=== PATIENT | male | born 1980 | race Caucasian/White ===

== ENCOUNTER 2019-06-21 12:33 | Emergency (ER) | payer OTHER ==
[~2019-06-21] VITALS: Ht 183 cm; Wt 90.7 kg
--- OUTSIDE RECORDS SUMMARY | 2019-06-21 13:02 | XMS REPORT | Continuity of Care Document ---
Author Organization Unknown Address Unknown Phone Unavailable Allergies There is no data. Medications There is no data. Problems There is no data. Procedures There is no data. Results There is no data. Encounters ACCT No. Visit Date/Time Discharge Status Pt. Type Provider Facility Loc./Unit Complaint [id number] 12/15/2018 14:10:00 12/15/2018 23:59: 59 CLS Outpatient [facility]
--- NOTE | 2019-06-21 13:06 | ED Upper Extremity ---
General Chief Complaint: Upper Extremity Stated Complaint: LT ARM INJ Nursing Triage Note: Patient c/o L arm bruising. patient stating fell on arm 2 days prior and was treated by urgent care and had x-ray. patient reports is to have follow up with ortho on 06/22/2019, but states he noticed bruise today Nursing Sepsis Screen: No Definite Risk Source: patient Exam Limitations: other (patient appears to have some intellectual deficit) History of Present Illness Date Seen by Provider: Jun 21, 2019 Time Seen by Provider: 12:50 Initial Comments 38-year-old male presents to the emergency room for evaluation of a contusion with what appears to be a biceps tear on the left upper extremity. Patient's father was here approximately 1 hour ago and patient came in for evaluation. He states he woke up and noticed that there is a large bruise on his left arm. Patient does appear to have some intellectual impairment. Patient states that he has an appointment for orthopedics tomorrow but did not know where to go so he decided to come in. Contacted urgent care and they in turn sent him to the emergency room. Patient sustained a fall earlier this week and injured his left upper extremity was placed in a sling. He has a contusion about 6 inches long on the biceps area of the left upper extremity. There is a area of discomfort in the biceps belly and appears as a partial tear in the biceps. Patient states he's been taking aspirin 4 times a day for discomfort and was told that he should stop taking that because of the increased bleeding. He denies any bleeding dyscrasias. Patient denies any cardiac pulmonary GI or renal disease. He denies any other injuries from the fall. Patient has given informed consent for diagnostic and therapeutic services. In light of the ecchymoses and discomfort PT PTT INR and CBC have been ordered. He will see Fransisco Herzog ATOMIC SPECTROSCOPIST, orthopedics. Onset: last week (earlier this week) Pain/Injury Location: left arm (ecchymoses noted in the left mid arm consistent with a biceps partial tear.) Method of Injury: fell Modifying Factors: Improves With Movement (patient is in a sling for the left upper extremity it is appropriately attached and patient is appropriately wearing it.) Allergies and Home Medications Allergies Coded Allergies: No Known Drug Allergies (Unverified , 06/21/19) Home Medications No Active Prescriptions or Reported Meds Patient Home Medication List Home Medication List Reviewed: Yes Review of Systems Constitutional: weakness (in the left upper extremity), other (patient appears to have a intellectual deficit) EENTM: see HPI Respiratory: no symptoms reported Cardiovascular: no symptoms reported Gastrointestinal: no symptoms reported Genitourinary: no symptoms reported Musculoskeletal: see HPI, muscle pain, muscle stiffness, muscle weakness (injury to the left upper extremity consistent with partial tear of the bicep with ecchymoses) Skin: change in color (ecchymoses in the left upper extremity consistent with tear in the biceps area subsequent ecchymoses) Psychiatric/Neurological: Anxiety, Weakness, Other (intellectual impairment) Past Pfwtufz-Bygbrf-Uxprrz Hx Past Med/Social Hx: Reviewed Nursing Past Med/Soc Hx Patient Social History Alcohol Use: Denies Use Recreational Drug Use: No Smoking Status: Never a Smoker Recent Foreign Travel: No Contact w/Someone Who Travel: No Recent Infectious Disease Expo: No Past Medical History Surgeries: No Respiratory: No Cardiac: Yes Heart Murmur Neurological: No Genitourinary: No Gastrointestinal: No Musculoskeletal: No Endocrine: No HEENT: No Cancer: No Psychosocial: No Integumentary: No Blood Disorders: No Physical Exam Vital Signs Vital Signs - First Documented 06/21/19 12:42 Temp 36.8 Pulse 81 Resp 18 B/P (MAP) 130/87 (101) Pulse Ox 97 Capillary Refill : Less Than 3 Seconds Height, Weight, BMI Height: '" Weight: lbs. oz. kg; 27.00 BMI Method: General Appearance: WD/WN, moderate distress (secondary to left biceps injury with ecchymoses and pain) HEENT: PERRL/EOMI, normal ENT inspection, pharynx normal Neck: non-tender, full range of motion, supple, normal inspection Cardiovascular: normal peripheral pulses, regular rate, rhythm, no edema, no gallop, no JVD, no murmur (although patient reports that he has a history of a murmur) Respiratory: chest non-tender, lungs clear, normal breath sounds, no respiratory distress, no accessory muscle use Gastrointestinal: normal bowel sounds, non tender, soft, no organomegaly, no pulsatile mass Back: normal inspection, no CVA tenderness, no vertebral tenderness Shoulder: normal inspection, non-tender, no evidence of injury (but patient has mid arm pain with ecchymoses and evidence of partial tear of the biceps) Elbow/Forearm: normal inspection, non-tender, no evidence of injury, normal ROM Wrist: Yes normal inspection, Yes non-tender, Yes no evidence of injury, Yes normal ROM Hand: normal inspection, non-tender, no evidence of injury, normal ROM Reflexes: 2+ bicep (R); 1+ bicep (L) Neurologic/Tendon: normal sensation, other (patient has examination consistent with partial tear of the biceps tendon and bicep muscle on the left upper extremity. Further evaluation by orthopedics as necessary) Neurologic/Psychiatric: management planner II-XII nml as tested, no motor/sensory deficits, alert, normal mood/affect, oriented x 3, other (patient has intellectual impairment with speech dysarthria) Skin: warm/dry, ecchymosis (left upper extremity midshaft area ecchymoses consistent with biceps tear) Lymphatic: no adenopathy Progress/Results/Core Measures Results/Orders Lab Results Laboratory Tests Test 06/21/19 13:10 Range/Units White Blood Count 7.1 4.3-11.0 10^3/uL Red Blood Count 5.61 4.35-5.85 10^6/uL Hemoglobin 15.5 13.3-17.7 G/DL Hematocrit 47 40-54 % Mean Corpuscular Volume 83 80-99 FL Mean Corpuscular Hemoglobin 28 25-34 PG Mean Corpuscular Hemoglobin Concent 33 32-36 G/DL Red Cell Distribution Width 12.5 10.0-14.5 % Platelet Count 309 130-400 10^3/uL Mean Platelet Volume 8.8 7.4-10.4 FL Neutrophils (%) (Auto) 77 H 42-75 % Lymphocytes (%) (Auto) 13 12-44 % Monocytes (%) (Auto) 8 0-12 % Eosinophils (%) (Auto) 1 0-10 % Basophils (%) (Auto) 0 0-10 % Neutrophils # (Auto) 5.5 1.8-7.8 X 10^3 Lymphocytes # (Auto) 0.9 L 1.0-4.0 X 10^3 Monocytes # (Auto) 0.6 0.0-1.0 X 10^3 Eosinophils # (Auto) 0.1 0.0-0.3 10^3/uL Basophils # (Auto) 0.0 0.0-0.1 10^3/uL Prothrombin Time 13.2 12.2-14.7 SEC INR Comment 1.0 0.8-1.4 Activated Partial Thromboplast Time 27 24-35 SEC My Orders Orders - DOMINIK LEYVA DO Protime With Inr (06/21/19 12:59) Partial Thromboplastin Time (06/21/19 12:59) Cbc And Manual Diff (06/21/19 12:59) Vital Signs/I&O 06/21/19 12:42 Temp 36.8 Pulse 81 Resp 18 B/P (MAP) 130/87 (101) Pulse Ox 97 Blood Pressure Mean: 101 Progress Progress Note : Time: 13:56 Progress Note Coagulation profile reveals a normal platelet count of 309 and PT PTT and INR all normal. Patient does not appear to have acute bleeding event and will follow-up with orthopedics tomorrow. Most likely has a partial tear of the biceps tendon or biceps muscle. Departure Impression Primary Impression: Biceps muscle tear Additional Impression: Biceps rupture, distal Disposition: 01 HOME, SELF-CARE Condition: Improved Departure-Patient Inst. Decision time for Depature: 13:59 Referrals: NO,LOCAL PHYSICIAN (PCP) Primary Care Physician JOHNATHON GRAHAM MD Patient Instructions: Biceps Tendinopathy, Biceps Tendon Rupture Add. Discharge Instructions: She presented for evaluation of ecchymoses in his left upper extremity. Patient has what appears to be a biceps tear and/or biceps distal tendinitis with partial tear. He is to follow-up with Dr. Graham tomorrow with the Fransisco Herzog ATOMIC SPECTROSCOPIST for eval of biceps tear and care. Pt has no evidence of coagulopathy. Wound did not change during the emergency room stay. Patient understands he should stop taking aspirin and or ibuprofen. He may take Tylenol for discomfort and use ice for swelling. All discharge instructions reviewed with patient and/or family. Voiced understanding. Scripts No Active Prescriptions or Reported Meds Copy Copies To 1: JOHNATHON GRAHAM MD, ANTHONY H DO Jun 21, 2019 13:06
[2019-06-21 13:19] LABS: BASOPHILS % (AUTO) 0 % (0-10); EOSINOPHILS # (AUTO) 0.1 10^3/uL (0.0-0.3); EOSINOPHILS % (AUTO) 1 % (0-10); HEMATOCRIT 47 % (40-54); HEMOGLOBIN 15.5 G/DL (13.3-17.7); LYMPHOCYTES # (AUTO) 0.9 X 10^3 (1.0-4.0); LYMPHOCYTES % (AUTO) 13 % (12-44); MEAN CORPUSCULAR HEMOGLOBIN 28 PG (25-34); MEAN CORPUSCULAR HGB CONC 33 G/DL (32-36); MEAN CORPUSCULAR VOLUME 83 FL (80-99); MEAN PLATELET VOLUME 8.8 FL (7.4-10.4); MONOCYTES # (AUTO) 0.6 X 10^3 (0.0-1.0); MONOCYTES % (AUTO) 8 % (0-12); NEUTROPHILS # (AUTO) 5.5 X 10^3 (1.8-7.8); NEUTROPHILS % (AUTO) 77 % (42-75); PLATELET COUNT 309 10^3/uL (130-400); RED CELL DISTRIBUTION WIDTH 12.5 % (10.0-14.5); WHITE BLOOD COUNT 7.1 10^3/uL (4.3-11.0)
[2019-06-21 13:52] LABS: PROTHROMBIN TIME PATIENT 13.2 SEC (12.2-14.7)
[2019-06-21 14:00] LABS: BAND NEUTROPHILS 4 %; BASOPHILS % (MANUAL) 1 %; EOSINOPHILS % (MANUAL) 2 %; LYMPHOCYTES % (MANUAL) 24 %; MONOCYTES % (MANUAL) 4 %; NEUTROPHILS % (MANUAL) 65 %; RBC MORPH NORMAL
[2019-06-21 14:08] VITALS: BP 130/87
== END 2019-06-21 14:08 | disposition home or self-care (01) ==
LOC: ER FS 12:38
DX: S46.212A Strain of muscle, fascia and tendon of other parts of biceps, left arm, initial encounter (principal); S40.022A Contusion of left upper arm, initial encounter; W19.XXXA Unspecified fall, initial encounter
CPT/HCPCS: 36415; 85007; 85027; 85610; 85730; 99281

== ENCOUNTER 2019-12-16 14:03 | Emergency (ER) | payer OTHER ==
[~2019-12-16] VITALS: Ht 182.3 cm; Wt 94.3 kg
[2019-12-16 14:09] VITALS: BP 139/82
--- NOTE | 2019-12-16 14:55 | ED General ---
General Chief Complaint: Upper Extremity Stated Complaint: LT ELBOW INJ History of Present Illness Date Seen by Provider: Dec 16, 2019 Time Seen by Provider: 14:49 Initial Comments Patient presents emergency department for evaluation of left elbow pain as he said earlier today he slipped on some liquid that he thinks may have been Urine and he fell down some wooden steps landing on his left elbow and other is swelling noted. He also says he has mild discomfort in his left posterior ribs as well hurt slightly with movements and deep breaths but no shortness of breath. He denies any head neck chest abdomen or other extremity pain or trauma. He denies any weakness numbness or tingling. He is in no obvious distress with normal vital signs. Allergies and Home Medications Allergies Coded Allergies: No Known Drug Allergies (Unverified , 06/21/19) Home Medications No Active Prescriptions or Reported Meds Patient Home Medication List Home Medication List Reviewed: Yes Review of Systems Review of Systems Constitutional: no symptoms reported Respiratory: no symptoms reported Cardiovascular: no symptoms reported Gastrointestinal: no symptoms reported Musculoskeletal: back pain, joint pain Skin: no symptoms reported Psychiatric/Neurological: No Symptoms Reported All Other Systems Reviewed Negative Unless Noted: Yes Past Dayhdth-Mjtrkn-Osevyj Hx Patient Social History Alcohol Use: Denies Use Recreational Drug Use: No Smoking Status: Never a Smoker 2nd Hand Smoke Exposure: No Recent Hopitalizations: No Physical Abuse: No Sexual Abuse: No Mistreated: No Fear: No Seasonal Allergies Seasonal Allergies: No Past Medical History Surgeries: No Respiratory: No Cardiac: Yes Heart Murmur Neurological: No Genitourinary: No Gastrointestinal: No Musculoskeletal: No Endocrine: No HEENT: No Cancer: No Psychosocial: No Integumentary: No Blood Disorders: No Physical Exam Vital Signs Vital Signs - First Documented 12/16/19 14:09 Temp 36.7 Pulse 89 Resp 16 B/P (MAP) 139/82 (101) Pulse Ox 96 O2 Delivery Room Air Capillary Refill : Height, Weight, BMI Height: '" Weight: lbs. oz. kg; 27.00 BMI Method: General Appearance: No Apparent Distress, WD/WN HEENT: PERRL/EOMI Neck: Full Range of Motion, Non Tender, Supple Respiratory: Lungs Clear Cardiovascular: Regular Rate, Rhythm Gastrointestinal: Non Tender, Soft Back: Normal Inspection, No Vertebral Tenderness, Other (mild L posteior inferior rib pain to palpation. No bruising or deformity) Extremity: Normal Capillary Refill, Other (patient with intact range of motion of left elbow with no discomfort however he appears to have swelling at the olecranon likely an inflamed bursa or bursa hematoma) Neurologic/Psychiatric: Alert, Oriented x3 Skin: Warm/Dry Progress/Results/Core Measures Suspected Sepsis SIRS Temperature: Pulse: Respiratory Rate: Blood Pressure / Mean: Results/Orders My Orders Orders - MARIA ESTHER CALVILLO DO Elbow 3 View Left (12/16/19 14:19) Chest 1 View Ap/Pa Only (12/16/19 14:19) Vital Signs/I&O 12/16/19 14:09 Temp 36.7 Pulse 89 Resp 16 B/P (MAP) 139/82 (101) Pulse Ox 96 O2 Delivery Room Air Capillary Refill : Progress Note : Progress Note Patient with normal x-rays. He appears well with normal vital signs and his pain level is a 2. No s/s of acute traumatic injury such as intra-abdominal injury or retro-peritoneal injury. Will recommend NSAIDs for pain and rice precautions and told to follow primary care provider later this week and come back to the emergency Department sooner with worsening pain neurologic changes other general concerns. Patient aware and agreeable with plan and verbalized understanding of the above instructions. Departure Impression Primary Impression: Traumatic hematoma of elbow Qualified Codes: S50.02XA - Contusion of left elbow, initial encounter Additional Impression: Contusion of rib on right side Qualified Codes: S20.211A - Contusion of right front wall of thorax, initial encounter Disposition: HOME, SELF-CARE Condition: Stable Departure-Patient Inst. Referrals: NO,LOCAL PHYSICIAN (PCP/Family) Primary Care Physician Patient Instructions: Contusion (DC) Add. Discharge Instructions: Take 600mg of ibuprofen every 6 hours for pain. Rest Ice Compression Elevation All discharge instructions reviewed with patient and/or family. Voiced understanding. Scripts No Active Prescriptions or Reported Meds MARIA ESTHER CALVILLO DO Dec 16, 2019 14:55
--- NOTE | 2019-12-16 15:22 | Diagnostic Imaging Report ---
INDICATION: Fall, pain. COMPARISON: None available. TECHNIQUE: Single radiograph of the chest dated December 16, 2019. FINDINGS: The cardiac silhouette is within normal limits in size. No significant pulmonary vascular congestion. The lungs are clear. No pleural effusion. No pneumothorax. No acute osseous abnormality. IMPRESSION: No acute cardiopulmonary abnormality. Dictated by: Dictated on workstation # [id number]
--- NOTE | 2019-12-16 15:22 | Diagnostic Imaging Report ---
EXAM: Left elbow radiograph. EXAM DATE: 12/16/2019. COMPARISON: None. HISTORY: Fall onto elbow with pain. TECHNIQUE: 3 views of the left elbow. FINDINGS: No acute fracture, dislocation or destructive osseous process. The joint spaces are normal. The soft tissues are normal. IMPRESSION: No acute osseous abnormality of the left elbow. Dictated by: Dictated on workstation # [id number]
== END 2019-12-16 15:34 | disposition home or self-care (01) ==
LOC: EDUNIT# 14:03 → ER FS 14:05
DX: S50.02XA Contusion of left elbow, initial encounter (principal); S20.211A Contusion of right front wall of thorax, initial encounter; W01.0XXA Fall on same level from slipping, tripping and stumbling without subsequent striking against object, initial encounter
CPT/HCPCS: 71045; 73080